=== PATIENT | female | born 1960 | race Caucasian/White ===

== ENCOUNTER 2019-08-31 00:49 | Day surgery (SDC) | payer BC, SELFPAY ==
[2019-08-27 13:38] VITALS: BMI 43.1
[2019-08-31 12:24] VITALS: BP 134/71; PULSE 87; RESP 18; TEMP 37.1; O2SAT 97; BMI 41.1
[2019-08-31 12:37] LABS: Glucose Point of Care 80 (65-105)
[2019-08-31] MEDS: LACTATED RINGERS 1,000 ML 150 ML IV CONT (12:41)
--- NOTE | 2019-08-31 13:46 | WPDANESEPPF ---
Anes - Initial Pre Proc Eval Procedure: Operation Date: 08/31/19 14:00 Proposed Procedures p Screening Colonoscopy - Joce Gamez DO Date/Time: 08/31/19 13:46 Surgeon: Joce Gamez DO Pre Op Diagnosis: Neoplasm Screening Patient Data Age: 58 Gender: F Height: 5 ft 2 in Weight: 102.1 kg Last Vital Signs Temp 37.1 C 08/31/19 12:24 Pulse 87 08/31/19 12:24 Resp 18 08/31/19 12:24 BP 134/71 08/31/19 12:24 Pulse Ox 97 08/31/19 12:24 Allergies Allergy/AdvReac Type Severity Reaction Status Date / Time penicillin G Allergy Rash Verified 08/31/19 12:23 Home Medications Medication Instructions Recorded Confirmed Type atorvastatin 40 mg PO QAM 08/27/19 08/31/19 History celecoxib 200 mg PO QAM 08/27/19 08/31/19 History cetirizine 10 mg PO DAILY 08/27/19 08/31/19 History citalopram 20 mg PO QAM 08/27/19 08/31/19 History glimepiride 4 mg PO QAM 08/27/19 08/31/19 History lisinopril 5 mg PO QAM 08/27/19 08/31/19 History metformin 2,000 mg PO QAM 08/27/19 08/31/19 History multivitamin [Multiple Vitamins] 1 tablet PO DAILY 08/27/19 08/31/19 History omeprazole 20 mg PO DAILY 08/27/19 08/27/19 History Laboratory Tests 08/31/19 12:34 POC Capillary Glucose 80 mg/dl mg/dl (65-105) Patient hx anesthesia problems: none Family hx anesthesia problems: none [facility] Past Medical History Medical History (Updated 08/31/19 @ 13:47 by Kristopher Harris MD) HTN (hypertension) Hyperlipidemia Morbid obesity Anes - Eval Final PreProcedure Day of Procedure 08/31/19 13:46 Patient weight: morbidly obese Heart: regular rate and rhythm Lungs: clear to auscultation Airway: Mallampati scale class II Neurological: alert and oriented Last oral intake: >/= 8 hours ASA classification: III Emergent: no Anesthetic plan: proceed Anesthesia type and monitoring: general GIVS and standard monitoring Informed Consent: The patient's anesthetic plan and its attendant risks and benefits were discussed with the patient/family/POA. Questions were solicited and answers provided to the satisfaction of the patient/family/POA.
--- NOTE | 2019-08-31 14:01 | PM.IMHP ---
H&P: HPI History of Present Illness Chief complaint: Neoplasm Screening Narrative: Yen Whiteside is a 58 year old female who presents for screening colonoscopy. Last colonoscopy was 11 years ago. Denies fam hx colon cancer. Denies hematochezia/melena. No change in bowel habits. Review of Systems Review of Systems: All systems reviewed & are unremarkable except as noted in HPI and below PMFSH Past Medical History Medical History (Updated 08/31/19 @ 14:03 by Joce Gamez DO) HTN (hypertension) Hyperlipidemia Morbid obesity Surgical History Surgical History (Updated 08/31/19 @ 14:02 by Joce Gamez DO) Hx of section Meds Home Medications and Allergies Home Medications Medication Instructions Recorded Confirmed Type atorvastatin 40 mg PO QAM 08/27/19 08/31/19 History celecoxib 200 mg PO QAM 08/27/19 08/31/19 History cetirizine 10 mg PO DAILY 08/27/19 08/31/19 History citalopram 20 mg PO QAM 08/27/19 08/31/19 History glimepiride 4 mg PO QAM 08/27/19 08/31/19 History lisinopril 5 mg PO QAM 08/27/19 08/31/19 History metformin 2,000 mg PO QAM 08/27/19 08/31/19 History multivitamin [Multiple Vitamins] 1 tablet PO DAILY 08/27/19 08/31/19 History omeprazole 20 mg PO DAILY 08/27/19 08/27/19 History Allergies Allergy/AdvReac Type Severity Reaction Status Date / Time penicillin G Allergy Rash Verified 08/31/19 12:23 Vital Signs Vital Signs - 24 hr 08/31/19 12:24 Temperature 37.1 C Pulse Rate 87 Respiratory Rate 18 Blood Pressure 134/71 Pulse Oximetry 97 Exam Const: General: no acute distress and alert Orientation/consciousness: patient oriented x3 HENMT: Head: normocephalic and atraumatic Ears: hearing grossly normal bilaterally General nose exam: Normal nares present Mouth: Yes Normal oral and palatal mucosa present Eyes: Periorbital: periorbital findings normal Sclera: sclerae normal EOM: EOMs intact bilaterally Neck: Neck: normal visual inspection, no lymphadenopathy and trachea midline Chest: Chest palpation & inspection: normal inspection of the chest Resp: Effort & Inspection: normal respiratory effort Auscultation: clear to auscultation bilaterally Cardio: Jugular venous distension: no JVD Rate: regular rate Rhythm: regular rhythm Heart sounds: S1 normal heart sound present and S2 normal heart sound present Peripheral pulses: Peripheral pulses 2+ throughout GI: Inspection: normal to inspection GI Palp: Yes Soft to palpation, No Tenderness to palpation present (GI), No Guarding due to palpation present (GI) and No Rebound tenderness present Percussion: Yes normal to percussion Auscultation: normal bowel sounds : General: Yes no CVA tenderness Back/Spine/Pelvis: Back: no CVA tenderness Neuro: General: patient oriented x3, no focal motor deficits and CN's II-XI intact bilaterally Cognition (Neuro): normal cognition Speech: normal speech Motor exam (neuro): 5/5 motor strength present throughout Extrem: General: capillary refill normal and no clubbing, cyanosis or edema Assessment and Plan Assessment and plan (1) Screening for colorectal cancer: Code(s): Z12.11 - Encounter for screening for malignant neoplasm of colon; Z12.12 - Encounter for screening for malignant neoplasm of rectum Status: Acute Assessment and Plan: I have recommended colonoscopy. I have discussed the procedure, risks, benefits, and alternatives with the patient. All questions answered.
[2019-08-31 14:35] VITALS: BP 102/49; PULSE 75; RESP 17; O2SAT 95
[2019-08-31 14:45] VITALS: BP 114/58; PULSE 76; RESP 16; O2SAT 95
[2019-08-31 14:55] VITALS: BP 120/60; PULSE 81; RESP 22; O2SAT 95
== END 2019-08-31 15:24 | disposition home or self-care (01) ==
PROVIDERS: PCP Internal Medicine; Visit Provider Surgery
PROC: 0DJD8ZZ Inspection of Lower Intestinal Tract, Via Natural or Artificial Opening Endoscopic (ICD-10-PCS; CPT 45378; principal; 2019-08-31 14:00)
DX: Z12.11 Encounter for screening for malignant neoplasm of colon (principal); K63.5 Polyp of colon; K64.8 Other hemorrhoids; I10 Essential (primary) hypertension; E78.5 Hyperlipidemia, unspecified; Z79.84 Long term (current) use of oral hypoglycemic drugs; E66.01 Morbid (severe) obesity due to excess calories; Z68.41 Body mass index [BMI] 40.0-44.9, adult
CPT/HCPCS: 45380; 88305; J7120

== ENCOUNTER 2020-04-19 09:26 | Outpatient (CLI) | payer BC, SELFPAY ==
[2020-04-19 09:39] LABS: Basophils Absolute Auto 0.07 K/mm3 (0.00-0.10); Basophils Percent Auto 1.2 % (0.0-1.0); Eosinophils Percent Auto 3.5 % (1.0-6.0); Hematocrit 46.2 % (35.0-49.0); Hemoglobin 15.4 g/dL (12.0-15.0); Immature Granulocyte Absolute 0.01 K/mm3 (0.00-0.00); Immature Granulocyte Percent A 0.2 % (0.0-0.0); Lymphocytes Absolute Auto 1.89 K/mm3 (1.10-4.50); Lymphocytes Percent Auto 32.9 % (18.0-42.0); Mean Corpuscular HGB Conc 33.3 g/dL (32.0-36.0); Mean Corpuscular Hemoglobin 31.3 pg (27.0-31.0); Mean Corpuscular Volume 93.9 fL (78.0-102.0); Mean Platelet Volume 10.6 fl (9.2-11.8); Monocytes Absolute Auto 0.29 K/mm3 (0.10-0.90); Monocytes Percent Auto 5.1 % (2.0-11.0); Neutrophils Absolute Auto 3.3 K/mm3 (1.7-7.2); Neutrophils Percent Auto 57.1 % (50.0-70.0); Platelet Count Result 288 K/mm3 (150-420); Red Blood Count 4.92 M/mm3 (4.20-5.40); Red Cell Distribution Width 12.5 % (11.6-14.4); White Blood Count 5.7 K/mm3 (4.8-10.8)
[2020-04-19 09:41] LABS: Add Urine Microscopic? YES; Appearance Urine Clear (Clear); Bilirubin Urine Negative (Negative); Blood Urine 1+ (Negative); Color Urine Yellow (Yellow); Glucose Urine UA Negative (Negative); Ketones Urine Negative (Negative); Leukocyte Esterase Ur Negative LEU/UL (Negative); Nitrate Urine Negative (Negative); Protein Urine Negative (Negative); Specific Grav Ur 1.025 (1.010-1.020); Urobilinogen Urine 0.2 mg/dL (0.2-1.0)
[2020-04-19 09:48] LABS: Hemoglobin A1C 6.1 % (<5.7); Microalbumin Urine Random < 13.0 mg/L
[2020-04-19 10:03] LABS: Bacteria Urine Trace /hpf; Squamous Epithelial Cell Urine None seen /hpf (Few); WBC Urine 0-3 /hpf (0-3)
[2020-04-19 10:10] LABS: Alanine Aminotransferase 30 U/L (14-59); Albumin Level 3.8 g/dL (3.4-5.0); Alkaline Phosphatase 81 U/L (46-116); Anion Gap 10 mmol/L (8-16); Aspartate Amino Transferase 12 U/L (15-37); Bilirubin,Total 0.4 mg/dL (0.00-1.00); Blood Urea Nitrogen 18 mg/dL (7-18); Calcium 9.4 mg/dL (8.5-10.1); Carbon Dioxide 28 mmol/L (21-32); Chloride 104 mmol/L (98-108); Cholesterol 221 mg/dL (0-200); Creatine Kinase 65 U/L (26-192); Estimated Glomerular Filt Rate > 60; Glucose 152 mg/dL (70-99); HDL Direct 50 mg/dL (40-60); LDL Cholesterol Calculated 153 mg/dL (<130); Osmolality Calculated 298 mOsm/kg (285-295); Potassium 4.4 mmol/L (3.5-5.1); Sodium 142 mmol/L (136-145); Triglycerides 88 mg/dL (0-150)
== END 2020-04-19 09:27 | disposition home or self-care (01) ==
LOC: CHSLAB 09:28
PROVIDERS: PCP Internal Medicine; Visit Provider Internal Medicine
DX: E78.5 Hyperlipidemia, unspecified (principal); I10 Essential (primary) hypertension; E11.9 Type 2 diabetes mellitus without complications
CPT/HCPCS: 36415; 80053; 80061; 81001; 82043; 82550; 83036; 85025

== ENCOUNTER 2021-12-08 11:32 | Outpatient (CLI) | payer BC, SELFPAY ==
--- NOTE | ~2021-12-08 | MM_ITS ---
EXAMINATION: MM screening [facility] w agusto HISTORY: Screening mammogram TECHNIQUE: Craniocaudal and mediolateral oblique 3-D tomosynthesis images were obtained and synthetic 2-D images were generated. CAD analysis was submitted and interpreted. COMPARISON: 09/29/2018, 03/25/2016 bilateral screening mammogram examinations BREAST PARENCHYMAL COMPOSITION: The breasts are almost entirely fatty. FINDINGS: Scattered bilateral benign calcifications. There is no evidence of suspicious mass, calcifi cation, or architectural distortion to suggest malignancy in either breast. There has been no suspici ous interval change. IMPRESSION: 1. No mammographic evidence of malignancy. 2. Recommend routine screening mammography in one year. BI-RADS Category 1: Negative Reviewed, dictated and finalized at location A.
== END 2021-12-08 11:33 | disposition home or self-care (01) ==
LOC: CHSIMG 11:35
PROVIDERS: PCP Internal Medicine; Visit Provider Internal Medicine
DX: Z12.31 Encounter for screening mammogram for malignant neoplasm of breast (principal)
CPT/HCPCS: 77063; 77067

== ENCOUNTER 2022-04-06 07:03 | Outpatient (CLI) | payer BC, SELFPAY ==
--- NOTE | ~2022-04-06 | US_ITS ---
EXAMINATION: US right upper quadrant DATE: 04/06/2022 07:58 INDICATION: Right upper quadrant pain TECHNIQUE: Multiple grayscale and Doppler ultrasound images of the abdomen were obtained. COMPARISON: 04/16/2009 FINDINGS: Bowel gas obscures visualization of the pancreas. The visualized portions of the pancreas a re unremarkable. The liver is normal with normal echogenicity and echotexture. No surface nodularity. Normal hepatopetal flow in the main portal vein. The gallbladder is normal with no abnormal wall thi ckening, pericholecystic fluid or stones. The normal common bile duct measures 2 mm. There was no son ographic Caldwell sign. IMPRESSION: 1. Normal sonographic study of the gallbladder. Reviewed, dictated and finalized at location A.
== END 2022-04-06 07:04 | disposition home or self-care (01) ==
LOC: CHSIMG 07:04
PROVIDERS: PCP Internal Medicine; Visit Provider Internal Medicine
DX: R10.11 Right upper quadrant pain (principal); R11.0 Nausea
CPT/HCPCS: 76705

== ENCOUNTER 2023-01-14 10:10 | Outpatient (CLI) | payer BC, SELFPAY ==
--- NOTE | ~2023-01-14 | NM_ITS ---
EXAMINATION: NM hepatobiliary w pharm DATE: 01/14/2023 13:22 INDICATION: Right upper quadrant abdominal pain. COMPARISON: Ultrasound 04/06/2022 TECHNIQUE: 5.7 mCi Tc-99m mebrofenin (Choletec) was administered intravenously. Scintigraphic images of the abdomen were obtained for one hour. Then, 2 mcg sincalide (Kinevac) IV was administered, and imaging was continued for 30 minutes. FINDINGS: There is normal clearance of radiotracer from the blood pool. There is homogeneous tracer u ptake by the liver. Activity progresses to the bowel and gallbladder. Gallbladder ejection fraction (GBEF) was 20%. Note that most patients with gallbladder dysfunction have GBEF < 35%, which overlaps with the broad normal range of 10-90%. IMPRESSION: 1. Gallbladder ejection fraction in the lower range of normal. Note that this value overlaps with th e range of values that may be seen with gallbladder dysfunction and/or chronic cholecystitis if there is appropriate clinical correlation. Reviewed, dictated and finalized at location A. IMPRESSION: 1. Gallbladder ejection fraction in the lower range of normal. Note that this value overlaps with the range of values that may be seen with gallbladder dysfu nction and/or chronic cholecystitis if there is appropriate clinical correlatio nRosario
== END 2023-01-14 10:11 | disposition home or self-care (01) ==
LOC: CHSIMG 10:13
PROVIDERS: PCP Internal Medicine; Visit Provider Internal Medicine
DX: R10.11 Right upper quadrant pain (principal)
CPT/HCPCS: 78227; A9537; J2805

== ENCOUNTER 2023-02-16 09:56 | Outpatient (CLI) | payer BC, SELFPAY ==
--- NOTE | ~2023-02-16 | MM_ITS ---
EXAMINATION: MM screening [facility] BI w agusto HISTORY: Screening mammogram TECHNIQUE: Craniocaudal and mediolateral oblique 3-D tomosynthesis images were obtained and synthetic 2-D images were generated. CAD analysis was submitted and interpreted. COMPARISON: 12/08/2021, 09/29/2018, 03/25/2016 BREAST PARENCHYMAL COMPOSITION: There are scattered areas of fibroglandular density. FINDINGS: No suspicious mass, calcification, or architectural distortion are identified in either janet ast to suggest malignancy. There has been no suspicious interval change. IMPRESSION: 1. No mammographic evidence of malignancy. 2. Recommend routine screening mammography in one year. BI-RADS Category 1: Negative Reviewed, dictated and finalized at location A.
== END 2023-02-16 09:57 | disposition home or self-care (01) ==
LOC: CHSIMG 09:57
PROVIDERS: PCP Internal Medicine; Visit Provider Internal Medicine
DX: Z12.31 Encounter for screening mammogram for malignant neoplasm of breast (principal)
CPT/HCPCS: 77063; 77067

== ENCOUNTER 2024-03-30 07:16 | Outpatient (CLI) | payer MEDICARE, SELFPAY ==
--- NOTE | ~2024-03-30 | DEXA_ITS ---
Bone Density Report Name: RAUL EVANS Age: 63 Sex: Female Ethnicity: White Date of : 1960 Indication: postmenopausal; screening for osteoporosis; parental hip fracture; Referring Provider: Prashant Vera Study: Bone densitometry was performed. Exam Date: March 30, 2024 Accession number: [id number] Bone Density: Region BMD T-score Z-score Classification AP Spine(L1-L4) 1.406 3.3 5.1 Normal Femoral Neck (Left) 1.186 3.0 4.6 Normal Total Hip (Left) 1.504 4.6 5.9 Normal Femoral Neck (Right) 1.141 2.6 4.2 Normal Total Hip (Right) 1.419 3.9 5.2 Normal Femoral Neck Mean 1.163 2.8 4.4 Normal Total Hip Mean 1.461 4.3 5.5 Normal World Health Organization criteria for BMD impression classify patients as: Normal (T-score at or above -1.0), Osteopenia (T-score between -1.0 and -2.5), or Osteoporosis (T-score at or below -2.5). 10-year Fracture Risk: FRAX not reported because: All T-scores for Spine Total, Hip Total, Femoral Neck at or above -1.0 Clinical Information Provided by Patient: Parent has had a hip fracture Patient maximum height was 62.8 Menopause Age: 45 Drinks caffeinated beverages Onset of menses at age 11 Number of children 4 Impression: The patient has normal bone mass. The patient has risk factors, including: parental hip fracture. Discussion: LOW RISK OF FRACTURE; BONE DENSITY IS WELL ABOVE THE MINIMUM DESIRABLE LEVEL AND ABOVE AVERAGE FOR AGE AND SEX AT ALL SKELETAL SITES TESTED. This person's bone density is above expected limits for age and sex. This is rarely clinically significant, but should be pursued if there are significant musculoskeletal complaints. The patient should follow a healthful lifestyle (good nutrition with adequate calcium and vitamin D, and appropriate weight-bearing exercise). Follow-Up: Consider repeating this study in 5 years or sooner if there is some new clinical indication. Reported by: NESTOR on 03/30/2024 7:55:00 AM. Reviewed, dictated and finalized at location A. [facility] CENTERXochitl
--- NOTE | ~2024-03-30 | MM_ITS ---
EXAMINATION: MM screening [facility]enny BI w agusto HISTORY: Screening mammogram TECHNIQUE: Craniocaudal and mediolateral oblique 3-D tomosynthesis images were obtained and synthetic 2-D images were generated. CAD analysis was submitted and interpreted. COMPARISON: 02/16/2023, 12/08/2021, 09/29/2018 BREAST PARENCHYMAL COMPOSITION:Not Dense. The breasts are almost entirely fatty FINDINGS: No suspicious mass, calcification, or architectural distortion are identified in either janet ast to suggest malignancy. There has been no suspicious interval change. IMPRESSION: No mammographic evidence of malignancy. Recommend routine screening mammography in one year. BI-RADS Category 1: Negative Reviewed, dictated and finalized at location .
== END 2024-03-30 07:17 | disposition home or self-care (01) ==
LOC: CHSIMG 07:23
PROVIDERS: PCP Internal Medicine; Visit Provider Internal Medicine
DX: Z12.31 Encounter for screening mammogram for malignant neoplasm of breast (principal); Z78.0 Asymptomatic menopausal state
CPT/HCPCS: 77063; 77067; 77080

== ENCOUNTER 2024-08-06 11:33 | Outpatient (CLI) | payer MEDICARE, SELFPAY ==
--- NOTE | ~2024-08-06 | XR_ITS ---
Left Knee Technique: AP, lateral, and sunrise views were obtained. Clinical History: Pain Findings: No fracture or dislocation is seen. Osseous alignment is anatomic. Moderate tricompartmenta l degenerative change present. Moderate joint effusion is seen. Impression: Moderate tricompartmental degenerative change. Moderate joint effusion. Reviewed, dictated and finalized at [facility]. THERAPIST Impression: Moderate tricompartmental degenerative change. Moderate joint effusion.
== END 2024-08-06 11:34 | disposition home or self-care (01) ==
LOC: CHSIMG 11:35
PROVIDERS: PCP Internal Medicine; Visit Provider Internal Medicine
DX: M25.562 Pain in left knee (principal); M25.462 Effusion, left knee
CPT/HCPCS: 73564

== ENCOUNTER 2025-05-20 14:08 | Outpatient (CLI) | payer MEDICARE, MEDICAID, SELFPAY ==
--- NOTE | ~2025-05-20 | MM_ITS ---
EXAMINATION: MM screening [facility] BI w agusto HISTORY: Screening TECHNIQUE: Craniocaudal and mediolateral oblique 3-D tomosynthesis images were obtained and synthetic 2-D images were generated. CAD analysis was submitted and interpreted. COMPARISON: Comparison to multiple prior studies sequentially, with oldest reviewed study dated 12/08/2021. BREAST PARENCHYMAL COMPOSITION: Not Dense: The breasts are almost entirely fatty. FINDINGS: There is no evidence of suspicious mass, calcification, or architectural distortion to suggest malignancy in either breast. There has been no suspicious interval change. IMPRESSION: 1. No mammographic evidence of malignancy. 2. Recommend routine screening mammography in one year. BI-RADS Category 1: Negative Reviewed, dictated and finalized at location B. [employer]
== END 2025-05-20 14:09 | disposition home or self-care (01) ==
LOC: CHSIMG 14:09
PROVIDERS: PCP Internal Medicine; Visit Provider Internal Medicine
DX: Z12.31 Encounter for screening mammogram for malignant neoplasm of breast (principal)
CPT/HCPCS: 77063; 77067